=== PATIENT | female | born 1980 | race Caucasian/White ===

== ENCOUNTER 2021-10-10 20:12 | Emergency (ER) | payer OTHER ==
[2021-10-10 21:52] VITALS: BP 130/78
== END 2021-10-10 21:53 | disposition home or self-care (01) ==
LOC: ED 20:12
DX: R51.9 Headache, unspecified (principal)
CPT/HCPCS: J1885

== ENCOUNTER 2022-03-15 09:58 | Emergency (ER) | payer OTHER ==
[~2022-03-15 09:58] MED LIST: BIOTIN2500 MCG
[2022-03-15 10:18] VITALS: BP 112/78
== END 2022-03-15 11:08 | disposition home or self-care (01) ==
LOC: ED 09:58
DX: S60.221A Contusion of right hand, initial encounter (principal); Z28.310 Unvaccinated for COVID-19; V49.9XXA Car occupant (driver) (passenger) injured in unspecified traffic accident, initial encounter; Y92.410 Unspecified street and highway as the place of occurrence of the external cause